=== PATIENT | female | born 1960 | race Caucasian/White ===

== ENCOUNTER 2018-08-31 05:17 | Inpatient (IN) | payer OTHER ==
[2018-08-31 06:00] LABS: Hemoglobin 17.1 g/dL (12.0-16.0); Mean Corpuscular HGB CONC 33.2 g/dL (32.0-36.0); Mean Corpuscular Hemoglobin 31.6 pg (27.0-31.0); Mean Corpuscular Volume 95.2 fL (78.0-98.0); Platelet Count 356 thou/uL (130-400); RBC Distribution Width 11.5 % (11.5-14.5); White Blood Cell (WBC) Count 9.7 thou/uL (4.8-10.8)
[2018-08-31 06:01] LABS: #Basophils 0.1 thou/uL (0.0-0.2); #Eosinphils 0.1 thou/uL (0.0-0.7); #Lymphocytes 2.8 thou/uL (1.20-3.40); #Monocytes 1.1 thou/uL (0.11-0.59); #Neutrophils 5.7 thou/uL (1.40-6.50); %Basophils 0.9 % (0.0-1.0); %Eosinophils 0.6 % (0.0-10.0); %Lymphocytes 28.6 % (21.0-51.0); %Monocytes 11.7 % (0.0-10.0); %Neutrophils 58.3 % (42.0-75.0); Mean Platelet Volume 7.6 fL (7.4-10.4)
[2018-08-31 06:28] LABS: ALT (SGPT) 49 U/L (8-55); AST (SGOT) 79 U/L (5-34); Acetaminophen Less than 6.0 mcg/mL (10.0-30.0); Albumin 4.7 g/dL (3.5-5.0); Alcohol Less than 10 mg/dL (Less than 10); Alkaline Phosphatase 95 U/L (40-150); Anion Gap 24 mmol/L (10-20); BUN (Urea Nitrogen) 27 mg/dL (9.8-20.1); Bilirubin, Total 1.7 mg/dL (0.2-1.2); CK (CPK) 1649 U/L (29-168); Calc. Creatinine Clearance 0 mL/min (70-130); Calcium 10.9 mg/dL (7.8-10.44); Carbon Dioxide 22 mmol/L (22-29); Chloride 94 mmol/L (98-107); Estimated GFR-MDRD 18; Globulin 4.3 g/dL (2.4-3.5); Glucose 106 mg/dL (70-105); Potassium 3.9 mmol/L (3.5-5.1); Salicylate Less than 8.0 mg/dL (15.0-30.0); Sodium 136 mmol/L (136-145)
[2018-08-31 07:11] LABS: Bilirubin Moderate (Negative); Blood, Urine Negative (Negative); Clarity CLOUDY (Clear); Glucose, Urine (Dipstick) Negative (Negative); Leukocyte Large (Negative); Nitrite Negative (Negative); Protein, Urine (Dipstick) Trace mg/dL (Neg-Trace)
[2018-08-31 07:12] LABS: Squamous Epithelial 0-3 HPF (0-3)
[2018-08-31 07:27] LABS: Pathc Cast-AUWi Flag 8.56 (0-2.49); Yeast-AUWi Flag 64.3 (0-25.0)
[2018-08-31 07:35] LABS: Medtox Reader # READER 1; Phencyclidine (PCP) Not Detected (NotDetected); THC/Cannabinoid Screen Not Detected (NotDetected)
[2018-08-31 07:36] LABS: Amphetamine Detected (NotDetected); Barbiturates Screen Not Detected (NotDetected); Benzodiazepine Screen Not Detected (NotDetected); Cocaine Metabolite Screen Detected (NotDetected); Medtox Control Line Valid? VALID (VALID); Methadone Not Detected (NotDetected); Methamphetamine Detected (NotDetected); Opiate Screen Not Detected (NotDetected); Oxycodone Screen Not Detected (NotDetected); Tricyclic Screen Detected (NotDetected)
[2018-08-31 07:40] LABS: Bacteria/HPF 1+ HPF (None Seen); Crystals/HPF 1+ CA OXALATE HPF (Negative); Manual Microscopic Reviewed? No Path Casts Seen; RBC/HPF 0-3 HPF (0-3)
[2018-08-31 07:41] LABS: Hyaline Casts/LPF 0-3 HYALINE CAST LPF (0-3 Hyaline); Yeast-All Forms None Seen HPF (None Seen)
[2018-08-31] MEDS ORDERED: cefTRIAXone\\ROCEPHIN 1 GM VIAL ONE (10:31)
[2018-08-31] MEDS ORDERED: Acetaminophen 650 MG Suppository PR PRN (12:26)
[2018-08-31] MEDS ORDERED: Acetaminophen 325 MG TAB PO PRN (12:26)
[2018-08-31] MEDS ORDERED: Bisacodyl 5 MG TAB PO PRN (12:26)
[2018-08-31] MEDS ORDERED: Diltiazem 125 MG in Sodium Chloride 0.9% 100 ML IVPB SCH (12:30)
--- NOTE | 2018-08-31 12:54 | HP ---
PRIMARY CARE PROVIDER: None. CHIEF COMPLAINT: Confusion. HISTORY OF PRESENT ILLNESS: Ms. Noe is a pleasant 58-year-old lady, who was seen at [facility] on August 31, 2018. She was brought to the emergency room for well check by EMS. She was released from [facility] yesterday following charges for narcotic and other drug abuse. She was found walking [place] [address] at 3:00 a.m. today. The patient reportedly admitted to cocaine and methamphetamine use yesterday and used methamphetamine at 2130 hours last night. She denied any chest pain or shortness of breath. She denies any nausea or vomiting. She denies any abdominal pain. When I saw the patient, she denied any complaints. She told me that she wanted to turn her life around. REVIEW OF SYSTEMS: All other systems reviewed and found to be negative. PAST MEDICAL HISTORY: Fibromyalgia. PAST SURGICAL HISTORY: Right forearm surgery, hysterectomy, two sections. PSYCHIATRIC HISTORY: Bipolar disorder. SOCIAL HISTORY: The patient smokes half a pack of cigarettes a day. She uses methamphetamine and cocaine. She denies alcohol use. FAMILY HISTORY: for heart disease. ALLERGIES: NO KNOWN DRUG ALLERGIES. CURRENT MEDICATIONS: Abilify 10 mg daily. PHYSICAL EXAMINATION: GENERAL: On examination, Ms. Noe is awake and alert, not in acute distress. VITAL SIGNS: Blood pressure is 134/99, pulse 110, respiratory rate 20, and oxygen saturation 95% on room air. She is afebrile. EYES: No scleral icterus, no conjunctival pallor. ENT: Dry mucosal membranes. No oropharyngeal erythema or exudates. NECK: Supple, nontender, trachea is midline. RESPIRATORY: Accessory muscles of breathing are not active. Chest wall movements are symmetric bilaterally. Lungs are clear to auscultation without wheeze, rhonchi, or crepitations. CARDIOVASCULAR: S1 and S2 are heard, regular. Peripheral pulses palpable. ABDOMEN: Soft, nontender, bowel sounds heard, no hepatomegaly, no splenomegaly. NEUROLOGIC: Cranial nerves 2 through 12 intact, deep tendon reflexes 2+. MUSCULOSKELETAL: Power is 5/5 in all 4 extremities. SKIN: No rashes or subcutaneous nodules. LYMPHATIC: No cervical lymphadenopathy. PSYCHIATRIC: Normal mood, normal affect, the patient is oriented to person, place, and time. LABORATORY DATA: Ms. Noe labs and investigations were reviewed. I reviewed her electrocardiogram, which shows sinus tachycardia, no ST changes to suggest an acute coronary syndrome. She has normal white count, elevated hemoglobin of 17.1, normal platelet count, normal sodium, normal potassium, elevated anion gap of 24, elevated blood urea nitrogen of 27, elevated creatinine of 2.66, elevated calcium 10.9, elevated total bilirubin of 1.7, elevated AST of 79, and elevated CK of 1649. TSH is elevated at 7.6349. Urinalysis is positive for large amount of leukocyte esterase. Urine toxicology screen is positive for tricyclics, amphetamines, methamphetamines, and cocaine metabolites. Plasma alcohol level is less than 10. ASSESSMENT AND PLAN: Ms. Noe is a pleasant 58-year-old lady, who was seen at [facility] on August 31, 2018. Problem list includes: 1. Acute kidney injury: Ms. Noe is presenting with acute kidney injury, most likely prerenal, since she is also dehydrated. She will be admitted to the hospital for further management. We will provide intravenous hydration and recheck creatinine. We will also consult Nephrology Service for opinion and help with management. 2. Rhabdomyolysis: She has elevated CK, we will provide IV hydration and recheck. 3. Abnormal liver function tests: Etiology is unclear, could be related to drug use. We will recheck LFTs. 4. Elevated TSH: We will check free T3 and free T4. 5. Urinary tract infection: She has evidence of urinary tract infection. She has been started on ceftriaxone, we will continue the same. 6. Polysubstance abuse: The patient has been counseled regarding cessation of recreational drugs. Please note that following my assessment, the patient was found to be tachycardic. I reviewed her repeat electrocardiogram, which shows atrial fibrillation with rapid ventricular response. I will start her on Cardizem drip and request Cardiology Service consultation. LEVEL OF COMPLEXITY: Moderate. LEVEL OF COMPLEXITY: Moderate. Job ID: [id number]
--- NOTE | 2018-08-31 13:09 | CON ---
DATE OF CONSULTATION: 08/31/2018 CONSULTING PHYSICIAN: Vince Ybarra MD REASON FOR CONSULTATION: Elevated creatinine. HISTORY OF PRESENT ILLNESS: A 58-year-old female with known history of polysubstance abuse, who was brought in by EMS after she was found walking [place]. The patient initially was confused, but reportedly has improved with treatment in the ER. She was able to tell me that she drank alcohol and used some cocaine on August 29 and was walking in the street as she was homeless when she was picked up by EMS. She reported some chest discomfort and palpitations earlier on, which have subsided at this time. She denied nausea, vomiting, change in bowel habits, or leg pain or cramps. She volunteered that she has been treated for heat stroke two times in the past. In the ER, the patient was found to have elevated creatinine of 2.6. She was also tachycardic and was started on IV fluid therapy. The patient denied NSAID use. PAST MEDICAL HISTORY: 1. Bipolar. 2. Polysubstance abuse. 3. Fibromyalgia. 4. Prior history of heat stroke. 5. The patient also reported there is history of schizophrenia. PAST SURGICAL HISTORY: None. FAMILY HISTORY: The patient reported history of hypertension in father and mother as well as diabetes in father. Father is , but mother is still alive. SOCIAL HISTORY: The patient reportedly was released from the [facility] on August 29 following charges for narcotics and other drug abuse. She reported that she is x2 and currently homeless. She also reported that relatives do not want anything to do with her due to her drug use. She admitted to cocaine, alcohol, and tobacco use. She reportedly smokes about a pack of cigarette per day. She admitted drinking a lot as well. HOME MEDICATIONS: This could not be ascertained, but she reportedly was taking Abilify, Lyrica, and Prozac in the past, but dose could not be clarified. ALLERGY: No known drug allergies reported. REVIEW OF SYSTEMS: 12-point review of systems performed was negative other than pertinent positives and negatives included in the history of present illness. PHYSICAL EXAMINATION: VITAL SIGNS: Initial vitals are as follows; blood pressure 109/86, pulse 109, respiratory rate 18, temperature 97.9, and SpO2 97% on room air. Current vitals showed blood pressure 134/99, pulse 110, respiratory rate 20, temperature 98.9, and SpO2 95% on room air. GENERAL: Elderly-looking, middle-aged female, who appeared older than stated age, in no obvious distress. Afebrile. Anicteric. Acyanotic. HEENT: Normocephalic, atraumatic. Pupils are equal and reacting to light. Oral mucosa is moist. NECK: Supple and nontender with full range of motion. No JVD or masses appreciated. CARDIOVASCULAR: Regular rhythm and rate. Tachycardic. Normal heart sounds 1 and 2. RESPIRATORY: Good air entry with some transmitted sounds. No obvious rhonchi or use of accessory muscles appreciated. GI: Full, soft, nontender, and nondistended with normal bowel sounds. EXTREMITIES: Grossly normal looking, atraumatic, with no edema, erythema, or cyanosis. SKIN: Marked facial tanning noticed. Otherwise, there is no rash appreciated. Skin, however, seems very dry. NEUROLOGIC: Conscious and alert and oriented x3 with appropriate mental status. Some memory lapses noticed. PSYCHIATRIC: The patient has pressured speech, but otherwise seems appropriate with no restlessness or agitation. DIAGNOSTIC STUDIES: CBC showed WBC count of 9.7, hemoglobin of 17.1, hematocrit of 51.4, MCV of 95.2, and platelets of 356. CMP showed sodium 136, potassium 3.9, chloride 94, CO2 of 22, anion gap 24, BUN 27, creatinine 2.66, glucose 106, calcium 10.9, total bilirubin 1.7, AST 79, ALT 49, alkaline phosphatase 95, total protein 9.0, albumin 4.7, globulin 4.3. CK is 1649. Urinalysis showed dark yellow cloudy urine with specific gravity of 1.02, positive ketones, moderate bilirubin, and large leukocyte esterase. Protein was trace. Blood and nitrite were negative. Microscopy showed 0 to 3 rbc and greater than 50 to iha-naoenrwa-rc-count wbc. Urine also was positive for calcium oxalate. Toxicology screen showed unremarkable salicylates, acetaminophen, and plasma alcohol, but urine drug screen was positive for tricyclics, amphetamine, methamphetamine, and cocaine. EKG showed sinus tachycardia with rate of 106. ST-segment and T-wave were unremarkable. ASSESSMENT: 1. Acute kidney injury: No prior renal function could be seen in the medical record, but clearly the patient is dehydrated. This most likely is related to hemodynamic factors related to volume depletion from poor oral intake and increased losses from perspiration as the patient was seen walking in the streets. Contribution from rhabdomyolysis cannot be ruled out. CK currently is 1600. 2. Dehydration with hemoconcentration: Most likely due to poor oral intake and increased losses. The patient has a hemoglobin of 17 as well as mild hypercalcemia of 10.9. 3. Rhabdomyolysis: Due to cocaine abuse as well as dehydration. 4. Pyuria: Urinalysis showed dpn-uyjwkvsy-rc-count leukocytes. The patient, however, denied dysuria. 5. Homelessness. 6. Polysubstance abuse. The patient admitted to using alcohol, tobacco, and recreational drugs including cocaine and amphetamine. 7. Psychiatric disorders includes schizophrenia and bipolar. PLAN: 1. Agree with fluid therapy. Recommend liberal IV fluid therapy at least 200 mL/h. We will also monitor CK and adjust fluid rates as needed. 2. We will get urine electrolytes and recheck renal function in the morning. If kidney function is not trending down as expected, we will get renal ultrasound. Avoid nephrotoxic agents. 3. Other treatment as per primary attending. Many thanks for involving us in the care of this patient. We will follow along with you. Job ID: [id number]
[2018-08-31 13:18] LABS: Free T4 (Free Thyroxine) 1.62 ng/dL (0.70-1.48)
[2018-08-31] MEDS: Nicotine 14 MG PATCH TD SCH (13:48)
[2018-08-31] MEDS: Sodium Chloride 0.9% 1,000 ML IV SCH (13:50)
[2018-08-31 14:24] VITALS: BMI 30.9
[2018-08-31] MEDS: Heparin 5,000 UNITS/ML VIAL SC SCH ×2 (17:09→21:20)
[2018-08-31 21:15] LABS: Creatinine, Urine 168.56 mg/dL (47-110)
[2018-09-01] MEDS: Sodium Chloride 0.9% 1,000 ML IV SCH ×2 (05:09→20:20)
[2018-09-01 07:22] LABS: Hemoglobin 13.2 g/dL (12.0-16.0); Mean Corpuscular HGB CONC 33.6 g/dL (32.0-36.0); Mean Corpuscular Hemoglobin 32.6 pg (27.0-31.0); Mean Platelet Volume 7.7 fL (7.4-10.4); Platelet Count 222 thou/uL (130-400); RBC Distribution Width 11.1 % (11.5-14.5); Red Blood Cell (RBC) Count 4.04 mill/uL (4.20-5.40); White Blood Cell (WBC) Count 4.6 thou/uL (4.8-10.8)
[2018-09-01 07:38] LABS: ALT (SGPT) 34 U/L (8-55); AST (SGOT) 68 U/L (5-34); Albumin 3.1 g/dL (3.5-5.0); Alkaline Phosphatase 73 U/L (40-150); Anion Gap 11 mmol/L (10-20); BUN (Urea Nitrogen) 15 mg/dL (9.8-20.1); Bilirubin, Total 0.6 mg/dL (0.2-1.2); CK (CPK) 1411 U/L (29-168); Calc. Creatinine Clearance 110 mL/min (70-130); Calcium 8.7 mg/dL (7.8-10.44); Carbon Dioxide 27 mmol/L (22-29); Chloride 106 mmol/L (98-107); Estimated GFR-MDRD 83; Globulin 2.7 g/dL (2.4-3.5); Glucose 90 mg/dL (70-105); Potassium 3.8 mmol/L (3.5-5.1); Protein, Total 5.8 g/dL (6.0-8.3); Sodium 140 mmol/L (136-145)
[2018-09-01] MEDS: Heparin 5,000 UNITS/ML VIAL SC SCH ×3 (08:13→20:21)
[2018-09-01 10:59] LABS: Band 2 % (5-11); Eosinophils 5 % (0-10); Lymphocytes 52 % (21-51); MDiff Complete? YES; Monocytes 6 % (0-10); Neutrophil 32 % (42-75); RBC Morphology Normal; Reactive Lymphocytes 3 % (0-10)
[2018-09-01] MEDS: cefTRIAXone\\ROCEPHIN 1 GM in Sodium Chloride 0.9% 100 ML IVPB SCH (11:11)
[2018-09-01] MEDS ORDERED: diphenhydrAMINE 30 GM TUBE TOP PRN (12:06)
[2018-09-01] MEDS: Nicotine 14 MG PATCH TD SCH (14:08)
--- NOTE | 2018-09-01 14:53 | PDOC.PN ---
- Subjective Encounter Start Date: 09/01/18 Encounter Start Time: 14:51 Subjective: c/o whole body rash due to poison ERENDIRA. -: c/o diffuse muscle aches - Objective MAR Reviewed: Yes Vital Signs & Weight: Vital Signs (12 hours) Temp Pulse Resp BP Pulse Ox 09/01/18 11:34 97.5 F L 72 18 102/68 93 L 09/01/18 08:00 97.7 F 67 18 93/60 91 L 09/01/18 04:00 97.8 F 73 18 102/65 93 L Weight Weight 179 lb 14.355 oz I&O: 08/31/18 09/01/18 09/02/18 06:59 06:59 06:59 Intake Total 400 800 Balance 400 800 Result Diagrams: 09/01/18 06:02 09/01/18 06:02 Additional Labs: Microbiology 08/31/18 06:45 Urine voided Urine Culture - Preliminary Beta-hemolytic Streptococcus Laboratory Tests 08/31/18 08/31/18 09/01/18 05:30 06:45 06:02 Creatine Kinase 1649 H 1411 H Ur Tricyclics Screen Detected H Ur Amphetamines Screen Detected H U Methamphetamines Scrn Detected H U Cocaine Metab Screen Detected H Phys Exam - Physical Examination Constitutional: NAD HEENT: PERRLA, moist MMs, sclera anicteric, oral pharynx no lesions Neck: no nodes, no JVD, supple, full ROM Respiratory: no wheezing, no rales, no rhonchi, clear to auscultation bilateral Cardiovascular: RRR, no significant murmur Gastrointestinal: soft, non-tender, no distention, positive bowel sounds Musculoskeletal: no edema, pulses present Neurological: non-focal, normal sensation, moves all 4 limbs Psychiatric: normal affect, A&O x 3 Skin: no rash Dx/Plan (1) Rhabdomyolysis Code(s): M62.82 - RHABDOMYOLYSIS Status: Acute Comment: CPK getting better.cont IVF.check in am again (2) Rash due to allergy Code(s): R21 - RASH AND OTHER NONSPECIFIC SKIN ERUPTION Status: Acute Comment: add Benadryl cream.monitor.no anaphylaxis (3) JEY (acute kidney injury) Code(s): N17.9 - ACUTE KIDNEY FAILURE, UNSPECIFIED Status: Acute Comment: improving w IVF.monitor (4) Drug abuse Code(s): F19.10 - OTHER PSYCHOACTIVE SUBSTANCE ABUSE, UNCOMPLICATED Status: Acute Comment: counselled. Pt agreeable to not do it ever again.seeks help - Plan DVT proph w/SCDs cont IVF.recheck labs in am -: if CPK trending doen,may DC tomorrow -: will request CM assitance as pt homeless and unsafe on streets * . Review of Systems - Review of Systems Constitutional: weakness, malaise. negative: fever, chills, sweats, other ENT: negative: Ear Pain, Ear Discharge, Nose Pain, Nose Discharge, Nose Congestion, Mouth Pain, Mouth Swelling, Throat Pain, Throat Swelling, Other Respiratory: negative: Cough, Dry, Shortness of Breath, Hemoptysis, SOB with Excertion, Pleuritic Pain, Sputum, Wheezing Cardiovascular: negative: chest pain, palpitations, orthopnea, paroxysmal nocturnal dyspnea, edema, light headedness, other Gastrointestinal: Nausea. negative: Vomiting, Abdominal Pain, Diarrhea, Constipation, Melena, Hematochezia, Other Genitourinary: negative: Dysuria, Frequency, Incontinence, Hematuria, Retention , Other Musculoskeletal: negative: Neck Pain, Shoulder Pain, Arm Pain, Back Pain, Hand Pain, Leg Pain, Foot Pain, Other Skin: negative: Rash, Lesions, Emeterio, Bruising, Other Neurological: negative: Weakness, Numbness, Incoordination, Change in Speech, Confusion, Seizures, Other - Medications/Allergies Allergies/Adverse Reactions: Allergies Allergy/AdvReac Type Severity Reaction Status Date / Time No Known Drug Allergies Allergy Verified 08/31/18 12:24 Medications: Current Medications Acetaminophen (Tylenol) 650 mg PO Q4H PRN PRN Reason: Headache/Fever/Mild Pain (1-3) Last Admin: 09/01/18 11:13 Dose: 650 mg Acetaminophen (Tylenol) 650 mg [place] Q4H PRN PRN Reason: Headache/Fever/Mild Pain (1-3) Aripiprazole (Abilify) 10 mg PO DAILY [facility] Bisacodyl (Dulcolax) 10 mg PO DAILYPRN PRN PRN Reason: Constipation Fluoxetine HCl (Prozac) 40 mg PO DAILY [facility] Heparin Sodium (Porcine) (Heparin) 5,000 units SC TID [facility] Last Admin: 09/01/18 08:13 Dose: Not Given Ceftriaxone Sodium 1 gm/ (Sodium Chloride) 100 mls @ 200 mls/hr IVPB 1100 [facility] Last Admin: 09/01/18 11:11 Dose: 100 mls Sodium Chloride (Normal Saline 0.9%) 1,000 mls @ 75 mls/hr IV .[id number] [facility] Last Admin: 09/01/18 05:09 Dose: 1,000 mls Nicotine (Nicoderm Patch) 14 mg TD 1300 [facility] Last Admin: 09/01/18 14:08 Dose: Not Given Pregabalin (Lyrica) 75 mg PO DAILY [facility] Zinc Acetate/Diphenhydramine (Benadryl 2% Cream) 0 gm TOP QID PRN PRN Reason: Rash/Topical Irritation
[2018-09-02] MEDS: Sodium Chloride 0.9% 1,000 ML IV SCH (05:43)
[2018-09-02] MEDS: Heparin 5,000 UNITS/ML VIAL SC SCH ×2 (08:31→15:12)
[2018-09-02] MEDS ORDERED: Aripiprazole 10 MG TAB PO SCH (09:00)
[2018-09-02] MEDS ORDERED: Pregabalin 75 MG CAP PO SCH (09:00)
[2018-09-02] MEDS ORDERED: FLUoxetine HCl 20 MG CAP PO SCH (09:00)
[2018-09-02] MEDS: cefTRIAXone\\ROCEPHIN 1 GM in Sodium Chloride 0.9% 100 ML IVPB SCH ×2 (11:10→15:37)
[2018-09-02] MEDS: Nicotine 14 MG PATCH TD SCH (12:38)
[2018-09-02] MEDS ORDERED: Nitrofurantoin Monohyd/M-Cryst 100 MG CAP PO SCH ×2 (14:00→21:00)
--- NOTE | 2018-09-02 14:06 | PDOC.PN ---
- Subjective Encounter Start Date: 09/02/18 Encounter Start Time: 13:58 Subjective: feels better.trying to get help w a friend - Objective MAR Reviewed: Yes Vital Signs & Weight: Vital Signs (12 hours) Temp Pulse Resp BP BP Pulse Ox 09/02/18 11:49 98.1 F 74 20 122/80 93 L 09/02/18 08:00 98.0 F 73 18 135/81 93 L Weight Weight 179 lb 14.355 oz I&O: 09/01/18 09/02/18 09/03/18 06:59 06:59 06:59 Intake Total 400 2570 Balance 400 2570 Result Diagrams: 09/01/18 06:02 09/01/18 06:02 Phys Exam - Physical Examination Constitutional: NAD HEENT: PERRLA, moist MMs, sclera anicteric, oral pharynx no lesions Neck: no nodes, no JVD, supple, full ROM Respiratory: no wheezing, no rales, no rhonchi, clear to auscultation bilateral Cardiovascular: RRR, no significant murmur Gastrointestinal: soft, non-tender, no distention, positive bowel sounds Musculoskeletal: no edema, pulses present Neurological: non-focal, normal sensation, moves all 4 limbs Psychiatric: normal affect, A&O x 3 Skin: no rash Dx/Plan (1) Rhabdomyolysis Code(s): M62.82 - RHABDOMYOLYSIS Status: Acute Comment: improved. DC IVF (2) Rash due to allergy Code(s): R21 - RASH AND OTHER NONSPECIFIC SKIN ERUPTION Status: Acute Comment: add Benadryl cream.monitor.no anaphylaxis (3) JEY (acute kidney injury) Code(s): N17.9 - ACUTE KIDNEY FAILURE, UNSPECIFIED Status: Acute Comment: improved (4) Drug abuse Code(s): F19.10 - OTHER PSYCHOACTIVE SUBSTANCE ABUSE, UNCOMPLICATED Status: Acute Comment: counselled. Pt agreeable to not do it ever again.seeks help - Plan OK to DC. -: CM to assist w safe DC plan -: PCP referral -: change AB xto Nitrofurantoin.Urine has <[id number] bacteria/hpf * . Review of Systems - Review of Systems Constitutional: negative: fever, chills, sweats, weakness, malaise, other ENT: negative: Ear Pain, Ear Discharge, Nose Pain, Nose Discharge, Nose Congestion, Mouth Pain, Mouth Swelling, Throat Pain, Throat Swelling, Other Respiratory: negative: Cough, Dry, Shortness of Breath, Hemoptysis, SOB with Excertion, Pleuritic Pain, Sputum, Wheezing Cardiovascular: negative: chest pain, palpitations, orthopnea, paroxysmal nocturnal dyspnea, edema, light headedness, other Gastrointestinal: negative: Nausea, Vomiting, Abdominal Pain, Diarrhea, Constipation, Melena, Hematochezia, Other Genitourinary: negative: Dysuria, Frequency, Incontinence, Hematuria, Retention , Other Musculoskeletal: negative: Neck Pain, Shoulder Pain, Arm Pain, Back Pain, Hand Pain, Leg Pain, Foot Pain, Other Neurological: negative: Weakness, Numbness, Incoordination, Change in Speech, Confusion, Seizures, Other - Medications/Allergies Allergies/Adverse Reactions: Allergies Allergy/AdvReac Type Severity Reaction Status Date / Time No Known Drug Allergies Allergy Verified 08/31/18 12:24 Medications: Current Medications Acetaminophen (Tylenol) 650 mg PO Q4H PRN PRN Reason: Headache/Fever/Mild Pain (1-3) Last Admin: 09/01/18 11:13 Dose: 650 mg Acetaminophen (Tylenol) 650 mg AL Q4H PRN PRN Reason: Headache/Fever/Mild Pain (1-3) Aripiprazole (Abilify) 10 mg PO DAILY [facility] Last Admin: 09/02/18 08:27 Dose: 10 mg Bisacodyl (Dulcolax) 10 mg PO DAILYPRN PRN PRN Reason: Constipation Fluoxetine HCl (Prozac) 40 mg PO DAILY [facility] Last Admin: 09/02/18 08:27 Dose: 40 mg Heparin Sodium (Porcine) (Heparin) 5,000 units SC TID [facility] Last Admin: 09/02/18 08:31 Dose: Not Given Ceftriaxone Sodium 1 gm/ (Sodium Chloride) 100 mls @ 200 mls/hr IVPB 1100 [facility] Last Admin: 09/02/18 11:10 Dose: 100 mls Sodium Chloride (Normal Saline 0.9%) 1,000 mls @ 75 mls/hr IV .[id number] [facility] Last Admin: 09/02/18 05:43 Dose: Not Given Nicotine (Nicoderm Patch) 14 mg TD 1300 [facility] Last Admin: 09/02/18 12:38 Dose: Not Given Nitrofurantoin Macrocrystals (Macrobid) 100 mg PO BID [facility] Nitrofurantoin Macrocrystals (Macrobid) 100 mg PO NOW [facility] Stop: 09/02/18 16:00 Pregabalin (Lyrica) 75 mg PO DAILY [facility] Last Admin: 09/02/18 08:27 Dose: 75 mg Zinc Acetate/Diphenhydramine (Benadryl 2% Cream) 0 gm TOP QID PRN PRN Reason: Rash/Topical Irritation Last Admin: 09/02/18 08:31 Dose: 1 applic
[2018-09-02 16:47] VITALS: BP 120/76; TEMP 98.2
--- NOTE | 2018-09-03 22:40 | DIS ---
DATE OF ADMISSION: 08/31/2018 DATE OF DISCHARGE: 09/02/2018 CONDITION: At the time of discharge, stable and improved. DISCHARGE DISPOSITION: Home. DISCHARGE DIAGNOSES: 1. Rhabdomyolysis due to exhaustion. 2. Allergic rash. 3. Acute kidney injury, improved. 4. Drug abuse. DISCHARGE MEDICATIONS: Benadryl cream topically p.r.n. IN-HOUSE CONSULTATION: Nephrology, Dr. Gallegos. PRIMARY CARE PHYSICIAN: None. The patient has been referred to [facility]. HISTORY OF PRESENTING ILLNESS: Ms. Noe is a 58-year-old female with past medical history of depression and fibromyalgia, who was found walking along the highway in the middle of the night. She was brought in by the police to the hospital. She was just released from [facility] the day prior to presentation. In the ER, she was found to have positive drug screen for tricyclics, amphetamine, methamphetamine, and cocaine and she was also found to have rhabdomyolysis and acute kidney injury. Her CPK was 1649 and her creatinine was 2.66. There, her urinalysis also suggested possible urinary tract infection. She was started on appropriate empiric IV antibiotics and IV fluids, and Nephrology was consulted. Please see admission history and physical dictated by Dr. Ybarra on 08/31/2018, for full details. HOSPITAL COURSE: The patient's CPK and creatinine improved dramatically overnight with IV fluids. Her creatinine improved from 2.66 to 0.72. Her creatine kinase improved to 1411. She was found to have abnormal thyroid levels at high TSH, high T3, and high T4. Her urine culture remained negative, so antibiotics were interrupted. The patient was counseled extensively about drug abuse. At this time, Case Management was also consulted and the patient is looking into [facility]. At this time, she is being discharged with her friend who came to pick her up and she will be staying with this friend for the next several days. DISCHARGE MEDICATION: No medications were provided as the patient has not refilled her prescriptions for few months. Her pharmacy was called in [place] and she reports being on Prozac, Lyrica, and Abilify, but has not used these or had them refilled in multiple months. She is referred to primary care physician for establishment of care and psychiatric referral. She was seen and examined prior to discharge. Please see hospitalist progress note from the date of discharge for full details. Job ID: [id number]
== END 2018-09-02 17:08 | disposition home or self-care (01) | DRG 558 ==
LOC: ERS 05:17 → ERHOLD 10:09 → T4-B 13:34
PROVIDERS: ADMIT Internal Medicine; ATTEND Internal Medicine
DX: M62.82 Rhabdomyolysis (principal); N17.9 Acute kidney failure, unspecified; I48.91 Unspecified atrial fibrillation; T78.49XA Other allergy, initial encounter; X58.XXXA Exposure to other specified factors, initial encounter; F14.10 Cocaine abuse, uncomplicated; F15.10 Other stimulant abuse, uncomplicated
CPT/HCPCS: 36415; 80053; 80306; 80307; 81003; 81015; 82550; 82570; 84156; 84300; 84439; 84443; 84481; 85025; 87086; 93005; 96361; 96365; J0696; J1644; J3490

== ENCOUNTER 2018-12-10 14:13 | Emergency (ER) | payer OTHER ==
--- NOTE | 2018-12-10 15:16 | RAD ---
RIGHT FOREARM TWO VIEWS: HISTORY: Right forearm pain. FINDINGS: There are postop changes with a plate and screws in the distal shafts of the right radius and ulna, i n good position and alignment. There are linear lucencies adjacent to the mid metallic plate, in the distal shaft of the ulna. In the absence of a previous comparison exam, it cannot be said with cert ainty if this is an acute or chronic finding. POS: [facility]
[2018-12-10] MEDS ORDERED: Ketorolac Tromethamine 30 MG/ML VIAL ONE (15:25)
== END 2018-12-10 15:44 | disposition home or self-care (01) ==
LOC: ERS 14:13
DX: M77.9 Enthesopathy, unspecified (principal); M79.7 Fibromyalgia; F31.9 Bipolar disorder, unspecified; F17.210 Nicotine dependence, cigarettes, uncomplicated; Z79.899 Other long term (current) drug therapy
CPT/HCPCS: 96372; J1885

== ENCOUNTER 2020-01-28 15:54 | Emergency (ER) | payer OTHER, SELFPAY ==
[2020-01-28] MEDS ORDERED: Ziprasidone 20 MG VIAL ONE (21:36)
[2020-01-28 21:49] LABS: Hemoglobin 14.9 g/dL (12.0-16.0); Mean Corpuscular HGB CONC 33.8 g/dL (32.0-36.0); Mean Corpuscular Hemoglobin 32.1 pg (27.0-31.0); Mean Corpuscular Volume 94.9 fL (78.0-98.0); Mean Platelet Volume 7.3 fL (7.4-10.4); Platelet Count 273 thou/uL (130-400); RBC Distribution Width 12.4 % (11.5-14.5); Red Blood Cell (RBC) Count 4.64 mill/uL (4.20-5.40); White Blood Cell (WBC) Count 6.7 thou/uL (4.8-10.8)
[2020-01-28 22:14] LABS: Eosinophils 1 % (0-10); Lymphocytes 58 % (21-51); MDiff Complete? YES; Monocytes 17 % (0-10); Neutrophil 24 % (42-75); Platelet Morphology Comment Appears Adequate; RBC Morphology Normal
[2020-01-28 22:24] LABS: ALT (SGPT) 39 U/L (8-55); AST (SGOT) 62 U/L (5-34); Albumin 4.3 g/dL (3.5-5.0); Alcohol Less than 10 mg/dL (Less than 10); Alkaline Phosphatase 114 U/L (40-110); BUN (Urea Nitrogen) 19 mg/dL (9.8-20.1); Bilirubin, Total 0.9 mg/dL (0.2-1.2); Calc. Creatinine Clearance 0 mL/min (70-130); Calcium 9.1 mg/dL (7.8-10.44); Carbon Dioxide 24 mmol/L (22-29); Chloride 100 mmol/L (98-107); Estimated GFR-MDRD 62; Globulin 3.3 g/dL (2.4-3.5); Glucose 119 mg/dL (70-105); Potassium 3.5 mmol/L (3.5-5.1); Protein, Total 7.6 g/dL (6.0-8.3); Salicylate Less than 8.0 mg/dL (15.0-30.0); Sodium 137 mmol/L (136-145)
[2020-01-28 22:27] LABS: Anion Gap 17 mmol/L (10-20)
[2020-01-29 00:29] LABS: Bilirubin Negative (Negative); Blood, Urine Negative (Negative); Clarity Clear (Clear); Glucose, Urine (Dipstick) Normal (Negative); Ketone, Urine Negative (Negative); Leukocyte Negative Leu/uL (Negative); Nitrite Negative (Negative); Protein, Urine (Dipstick) 20 mg/dL (Neg-Trace); Specific Gravity, Urine 1.037 (1.002-1.036)
[2020-01-29 00:40] LABS: Amphetamine Detected (NotDetected); Barbiturates Screen Not Detected (NotDetected); Benzodiazepine Screen Not Detected (NotDetected); Cocaine Metabolite Screen Detected (NotDetected); Medtox Control Line Valid? VALID (VALID); Medtox Reader # READER 4; Methadone Not Detected (NotDetected); Methamphetamine Detected (NotDetected); Opiate Screen Not Detected (NotDetected); Oxycodone Screen Not Detected (NotDetected); Phencyclidine (PCP) Not Detected (NotDetected); THC/Cannabinoid Screen Not Detected (NotDetected); Tricyclic Screen Not Detected (NotDetected)
[2020-01-29] MEDS ORDERED: Acetaminophen 325 MG TAB ONE (10:21)
== END 2020-01-29 10:32 | disposition home or self-care (01) ==
LOC: ERS 15:54
DX: F19.10 Other psychoactive substance abuse, uncomplicated (principal); F43.20 Adjustment disorder, unspecified; M79.7 Fibromyalgia; F31.9 Bipolar disorder, unspecified; F17.210 Nicotine dependence, cigarettes, uncomplicated; Z79.899 Other long term (current) drug therapy
CPT/HCPCS: 36415; 80053; 80306; 80307; 81003; 82550; 84443; 85025; J3486